=== PATIENT | female | born 1945 | race Caucasian/White ===

== ENCOUNTER → 2016-03-28 | Outpatient (CLI) | payer MEDICARE, OTHER ==
[2015-07-30 08:53] VITALS: BP 154/72
[~2016-03-28] MED LIST: BUDE10.2 IH; CALC-98 PO; FEXO180T81 PO; FEXO60TA25 PO; GLUC-126 PO; INDO50CA PO; LACT1CAP19 PO; MONT10TA6 PO; MULT-246 PO; OMEP20CA5 PO; PROAIR HFA8.5 GM IH
--- NOTE | 2016-03-28 11:43 | KCIC ---
PROCEDURE Bilateral digital screening mammogram. HISTORY 71-year-old female with a history of left breast cancer, status post left breast conservation therapy, presents for annual mammography. TECHNIQUE Full field digital craniocaudal and mediolateral oblique views of both breasts are obtained. Computer-aided detection is applied. COMPARISON 03/24/2015, 03/23/2014 FINDINGS Breast parenchymal composition: Level B - Scattered fibroglandular densities. There are stable findings consistent with breast conservation therapy. There is no new suspicious mass, calcification or architectural distortion within either breast. IMPRESSION BI-RADS Category 2: Benign findings. Annual mammography is recommended. Mammography is not 100% sensitive in detecting breast cancer. Therefore, a self breast exam and a clinical breast exam are very important. A negative mammogram does not negate a clinically suspicious finding and should not result in a delay in biopsying a clinically suspicious abnormality. This patient's information has been entered into a reminder system for the patient to be notified with the results of this examination and a target date for her next mammograms. Electronically signed by: Lashae Melendez (Mar 28, 2016 11:41:42)
== END | disposition home or self-care (01) ==
LOC: KCIC MAMMO 10:49
PROVIDERS: ATTEND Family Medicine
DX: Z12.31 Encounter for screening mammogram for malignant neoplasm of breast (principal); Z85.3 Personal history of malignant neoplasm of breast
CPT/HCPCS: G0202; 77067

== ENCOUNTER → 2017-03-29 | Outpatient (CLI) | payer MEDICARE, OTHER | END | disposition home or self-care (01) | LOC: KCIC MAMMO 12:42 | DX: Z12.31 Encounter for screening mammogram for malignant neoplasm of breast (principal); Z92.3 Personal history of irradiation; Z85.3 Personal history of malignant neoplasm of breast | CPT/HCPCS: 77063; 77067 ==

== ENCOUNTER → 2017-04-03 | Outpatient (CLI) | payer MEDICARE, OTHER | END | disposition home or self-care (01) | LOC: KCIC MAMMO 13:43 | DX: R92.1 Mammographic calcification found on diagnostic imaging of breast (principal); Z85.3 Personal history of malignant neoplasm of breast | CPT/HCPCS: 77065 ==

== ENCOUNTER → 2017-04-13 | Outpatient (CLI) | payer MEDICARE, OTHER ==
[2017-04-13] MEDS: LIDOCAINE WITH 8.4% SOD BICARB 3 ML DISP.SYRIN. INJ (13:15)
[2017-04-13] MEDS: LIDOCAINE 2%/EPI 1:100,000 20 ML VIAL. IJ (13:15)
== END | disposition home or self-care (01) ==
LOC: MAMMO 12:33
DX: R92.1 Mammographic calcification found on diagnostic imaging of breast (principal); Z85.3 Personal history of malignant neoplasm of breast
CPT/HCPCS: 77022; 77065; J3490

== ENCOUNTER 2017-10-16 15:40 | Inpatient (IN) | payer MEDICARE ==
[~2017-10-16] VITALS: Ht 170.2 cm; Wt 106.6 kg
[~2017-10-16 15:40] MED LIST changes: -INDO50CA PO; +INDO50CA5 PO
[2017-10-16 18:26] VITALS: BP 120/74
[2017-10-16 19:00] VITALS: BP 138/72
[2017-10-16] MEDS ORDERED: ALLO100T PO (19:18)
[2017-10-16] MEDS ORDERED: GLUC1TAB45 PO (19:18)
[2017-10-16] MEDS ORDERED: LACT1CAP6 PO (19:18)
[2017-10-16] MEDS ORDERED: LEVO150T5 PO (19:18)
[2017-10-16] MEDS ORDERED: TAMO20TA PO (19:18)
[2017-10-16] MEDS ORDERED: POTA99TA3 PO (19:18)
[2017-10-16] MEDS ORDERED: OMEP10CA3 PO (19:18)
[2017-10-16] MEDS ORDERED: MONT10TA9 PO (19:18)
[2017-10-16] MEDS ORDERED: PROAIR HFA8.5 GM INH (19:18)
[2017-10-16] MEDS ORDERED: BUDE10.22 IH (19:18)
[2017-10-16] MEDS ORDERED: CALC-77 PO (19:18)
[2017-10-16] MEDS ORDERED: ONDA4TAB7 PO (19:28)
[2017-10-16] MEDS ORDERED: NON FORMULARY ITEM (Albuterol Sulfate (Proair Hfa Inhaler) 1 PUFF) INH PRN (19:45)
[2017-10-16] MEDS ORDERED: ALBUTEROL SULFATE 2.5 MG/3 ML NEBU. NEB SCH (20:00)
[2017-10-16] MEDS ORDERED: ALBUTEROL SULFATE 2.5 MG/3 ML NEBU. NEB PRN (20:00)
[2017-10-16] MEDS ORDERED: BUDESONIDE 0.5 MG/2 ML NEBU. NEB SCH (20:00)
[2017-10-16] MEDS ORDERED: ONDANSETRON ODT 4 MG TAB.RAPDIS. PO PRN (20:15)
[2017-10-16 20:29] LABS: BASO # 0.1 x10^3/uL (0.0-0.2); BASO % 1 % (0-3); EOS # 0.2 x10^3/uL (0.0-0.7); EOS % 3 % (0-3); HEMATOCRIT 36.5 % (36.0-47.0); HEMOGLOBIN 12.4 g/dL (12.0-15.5); LYMPH # 1.8 x10^3/uL (1.0-4.8); LYMPH % 29 % (24-48); MEAN CORPUSCULAR HEMOGLOBIN 31 pg (25-35); MEAN CORPUSCULAR HGB CONC 34 g/dL (31-37); MEAN CORPUSCULAR VOLUME 92 fL (79-100); MONO # 0.6 x10^3/uL (0.0-1.1); MONO % 9 % (0-9); NEUT # 3.5 x10^3uL (1.8-7.7); NEUT % 58 % (31-73); PLATELET COUNT 190 x10^3/uL (140-400); RED BLOOD COUNT 3.96 x10^6/uL (3.50-5.40); WHITE BLOOD COUNT 6.1 x10^3/uL (4.0-11.0)
--- NOTE | 2017-10-16 20:41 | HP ---
ADMIT DATE: 10/16/2017 CHIEF COMPLAINT AND HISTORY OF PRESENT ILLNESS: This 72-year-old white female is well known to me from followup in the office. The patient has had a week or so of aching, malaise, anorexia, and just generally not feeling well. She went to [facility] on 10/13/2017, had lab done there showing a bilirubin increase to 3, her urine was darker. She had a report of CT scan of the abdomen showing no acute changes. She is known to have a cholecystectomy a couple of years ago and felt like the symptoms felt somewhat like she felt before she had that. PAST MEDICAL HISTORY: Remarkable for COPD, breast cancer, cataract surgery, melanoma, thyroid cancer in the past with total thyroidectomy. She has had the cholecystectomy, eye surgery, foot surgery. MEDICATIONS: Brought with the patient, listed on the computer and have been addressed. ALLERGIES: She has no known drug allergies. SOCIAL HISTORY: She has been a smoker, does drink, but not to excess. She is , lives alone. FAMILY HISTORY: Positive for CVA, Alzheimer disease, cancer of the colon and breast. REVIEW OF SYSTEMS: Just the generalized viral type illness with diarrhea, cramping abdominal pain, nausea, malaise, anorexia, and feels like, again as stated above, like this is similar to her prior episode of cholecystitis. PHYSICAL EXAMINATION: VITAL SIGNS: Stable. She is afebrile. HEAD, EYES, EARS, NOSE AND THROAT: Revealed very mild jaundice. NECK: Supple, no lymphadenopathy or thyromegaly. CHEST: Clear to auscultation and percussion with occasional wheeze. HEART: Regular rate and rhythm. ABDOMEN: Does have right upper quadrant tenderness without rebound or guarding, palpable hepatosplenomegaly or mass. EXTREMITIES: Without cyanosis, clubbing or edema. NEUROLOGIC: She is intact. LABORATORY DATA: Lab work in the office done 2 days after the Emergency Room visit showed the bilirubin climbing up to 4.7 where it had been 3.1, SGOT is elevated at 45, SGPT of 100 and her alkaline phosphatase is elevated at 171 with upper limits of normal of that lab of 129. CBC is unremarkable. Hepatitis A, B and C testing is all negative in the office on the . Urinalysis was positive bilirubin, positive leukocyte esterase, positive nitrites, in addition with 5-10 wbc's per high power field and 2+ bacteria suggestive of a possible UTI. She does have TSH that was checked in addition that is elevated at 7.3. IMPRESSION: 1. Jaundice with right upper quadrant pain, status post cholecystectomy with elevated alkaline phosphatase. 2. Possible urinary tract infection. 3. Multiple other problems listed above. PLAN: The patient has been admitted. Labs will be rechecked. GI has been consulted. An ultrasound of the abdomen will be obtained. If the repeat urine is the same, antibiotics will be instituted. We are waiting on an answer for this jaundice, which has been progressive over the last couple of days, 2-3 days at least prior to admission. BREANNA RUGGIERO MD DR: IHSAN/av JOB#: [id number] / [id number]
[2017-10-16 20:43] LABS: CALCIUM 8.6 mg/dL (8.5-10.1); CREATININE 1.7 mg/dL (0.6-1.0); GFR 29.6
[2017-10-16 20:48] LABS: ALBUMIN 2.9 g/dL (3.4-5.0); ALBUMIN/GLOBULIN RATIO 0.7 (1.0-1.7); TOTAL BILIRUBIN 1.6 mg/dL (0.2-1.0)
[2017-10-16] MEDS ORDERED: NON FORMULARY ITEM INH SCH (21:00)
[2017-10-16] MEDS: LACTOBACILLUS RHAMNOSUS GG 1 CAPSULE. PO SCH (21:14)
[2017-10-16] MEDS: BUDESONIDE INH SCH (21:16)
[2017-10-16] MEDS: MONTELUKAST SODIUM 10 MG TABLET. PO SCH (21:16)
[2017-10-16] MEDS: FORMOTEROL INH SCH (21:16)
[2017-10-16] MEDS: TAMOXIFEN 10 MG TABLET PO SCH (21:21)
--- NOTE | 2017-10-16 22:43 | RAD ---
Indication:ABNORMAL OUTSIDE LABS ELEVATED LIVER TECHNIQUE: Grayscale, color Doppler and spectral waveform is of the abdomen obtained. COMPARISON:None FINDINGS:Visualized pancreas is within normal limits. Pancreatic body and tail are visualized. IVC is patent. The proximal aortic diameter measures 2.3 cm and is within normal limits. The mid and distal aortic segments aren't visualized due to overlying bowel gas. Main portal vein is patent. The liver is mildly enlarged measuring 19 cm in craniocaudal dimension with diffusely increased echogenicity and decreased through transmission. No apparent focal liver lesion. Status post cholecystectomy. CBD measures 7 mm in diameter and is within normal limits. Right kidney is not well-visualized likely atrophic. The left kidney measures 13.7 cm in length without hydronephrosis. Spleen measures 11.3 cm in length and is normal in size. IMPRESSION: 1. Mild hepatomegaly with hepatic steatosis. 2. Right kidney is not well-visualized likely atrophic. Electronically signed by: Fausto Marin DO (10/16/2017 10:40 PM) [facility]
[2017-10-16 23:00] VITALS: BP 151/89
[2017-10-16 23:26] LABS: BILIRUBIN,URINE NEGATIVE (NEG); CLARITY,URINE CLEAR; NITRITE,URINE NEGATIVE (NEG); PH,URINE 6.5; PROTEIN,URINE NEGATIVE (NEG-TRACE); UROBILINOGEN,URINE 0.2 mg/dL (0.2 mg/dL)
[2017-10-16 23:31] LABS: COLOR,URINE STRAW
[2017-10-16 23:32] LABS: BACTERIA,URINE FEW /HPF (0-FEW); RBC,URINE 0 /HPF (0-2); SQUAMOUS EPITHELIAL CELL,UR MOD /LPF; WBC,URINE 0 /HPF (0-4)
[2017-10-17 03:00] VITALS: BP 138/66
[2017-10-17 07:00] VITALS: BP 121/54
[2017-10-17] MEDS ORDERED: LEVOTHYROXINE 150 MCG TABLET PO SCH (07:00)
[2017-10-17] MEDS: FORMOTEROL INH SCH ×2 (08:21→20:33)
[2017-10-17] MEDS: BUDESONIDE INH SCH ×2 (08:21→20:33)
[2017-10-17] MEDS: LACTOBACILLUS RHAMNOSUS GG 1 CAPSULE. PO SCH (08:22)
[2017-10-17] MEDS: POTASSIUM CHLORIDE 10 MEQ TABLET.ER. PO SCH (08:23)
[2017-10-17] MEDS: CALCIUM CARB/VIT D3 500/200 TABLET. PO SCH ×2 (08:23→17:16)
[2017-10-17] MEDS: PANTOPRAZOLE 40 MG TABLET.DR. PO SCH (08:23)
[2017-10-17] MEDS: ALLOPURINOL 100 MG TABLET. PO SCH (08:24)
[2017-10-17] MEDS ORDERED: TAMOXIFEN 10 MG TABLET PO SCH (09:00)
--- NOTE | 2017-10-17 10:05 | PDOC2 ---
GI CONSULT Reason For Consult: Jaundice, abnormal labs HPI: HPI: 72 y/o female who was not feeling well over the weekend w/ some fatigue, RUQ cramping, back and neck and chest aches, nausea, and decreased appetite. She noted dark urine and was seen at a [facility] ER on Sunday. She says she was told her bilirubin was 3 and that she was dehydrated. She then saw Dr. Perez in the office and says her bilirubin was 4 (on Sunday). Per Dr. Perez's note, CT at the ER was unremarkable. Labs here: bili 1.6, AST 49, ALT 116, Alk Phos 175. LFTs previously elevated into 2013. Also note CA19-9 of 535 at that time. Pain has resolved and her appetite is back to normal. She would like to go home. H/o GERD on omeprazole. No dysphagia, vomiting, diarrhea, hematochezia, melena , or weight loss. H/o constipation - last stool ~2 days ago. Has tried various treatments in the past (Mag Citrate usually works) but usually "just deals with it." No ASA, takes ibuprofen PRN. Denies pancreas or liver history. Colonoscopy 11/2014 (Dr. Ryder - for screening and h/o polyps): non-bleeding internal hemorrhoids, diverticulosis from sigmoid colon to hepatic flexure. EGD 11/2002 (Dr. Arevalo - for epigastric pain and dysphagia): mild antral gastritis (negative for H. pylori), empiric esophageal dilation to 54Fr. ERCP s/p sphincterotomy and stone extraction 05/2013 - reports indicates residual filling defects on last image (possibly air bubbles, residual calculi, or debris such as blood clot) S/p cholecystectomy 05/2013. H/o breast cancer x 2, currently on PO chemo. PMH: PMH: COPD, UTI, GERD, constipation, colon polyps, diverticulosis, melanoma, thyroid cancer s/p thyroidectomy, breast cancer x 2 s/p lumpectomies and chemo, eye surgery, foot surgery, cholecystectomy, ERCP w/ sphincterotomy FH: Family History: No pertinent hx Social History: Smoke: Quit ALCOHOL: occassional Drugs: None ROS: GEN: Denies fevers, chills, sweats HEENT: Denies blurred vision, sore throat CV: Denies chest pain RESP: Denies shortness of air, cough GI: Per HPI : Denies hematuria, dysuria ENDO: Denies weight changes NEURO: Denies confusion, dizziness MSK: Denies weakness, joint pain/swelling SKIN: Denies jaundice, pruritus Vitals: Vitals: Vital Signs Date Time Temp Pulse Resp B/P (MAP) Pulse Ox O2 Delivery O2 Flow Rate FiO2 10/17/17 07:45 Room Air 10/17/17 07:00 97.5 59 18 121/54 (76) 97 97.5 Labs: Labs: Laboratory Tests Test 10/16/17 20:20 10/16/17 21:20 White Blood Count 6.1 x10^3/uL (4.0-11.0) Red Blood Count 3.96 x10^6/uL (3.50-5.40) Hemoglobin 12.4 g/dL (12.0-15.5) Hematocrit 36.5 % (36.0-47.0) Mean Corpuscular Volume 92 fL (79-100) Mean Corpuscular Hemoglobin 31 pg (25-35) Mean Corpuscular Hemoglobin Concent 34 g/dL (31-37) Red Cell Distribution Width 14.0 % (11.5-14.5) Platelet Count 190 x10^3/uL (140-400) Neutrophils (%) (Auto) 58 % (31-73) Lymphocytes (%) (Auto) 29 % (24-48) Monocytes (%) (Auto) 9 % (0-9) Eosinophils (%) (Auto) 3 % (0-3) Basophils (%) (Auto) 1 % (0-3) Neutrophils # (Auto) 3.5 x10^3uL (1.8-7.7) Lymphocytes # (Auto) 1.8 x10^3/uL (1.0-4.8) Monocytes # (Auto) 0.6 x10^3/uL (0.0-1.1) Eosinophils # (Auto) 0.2 x10^3/uL (0.0-0.7) Basophils # (Auto) 0.1 x10^3/uL (0.0-0.2) Sodium Level 137 mmol/L (136-145) Potassium Level 4.0 mmol/L (3.5-5.1) Chloride Level 103 mmol/L (98-107) Carbon Dioxide Level 27 mmol/L (21-32) Anion Gap 7 (6-14) Blood Urea Nitrogen 16 mg/dL (7-20) Creatinine 1.7 mg/dL (0.6-1.0) Estimated GFR (Cockcroft-Gault) 29.6 BUN/Creatinine Ratio 9 (6-20) Glucose Level 155 mg/dL (70-99) Calcium Level 8.6 mg/dL (8.5-10.1) Total Bilirubin 1.6 mg/dL (0.2-1.0) Aspartate Amino Transf (AST/SGOT) 49 U/L (15-37) Alanine Aminotransferase (ALT/SGPT) 116 U/L (14-59) Alkaline Phosphatase 175 U/L (46-116) Total Protein 7.0 g/dL (6.4-8.2) Albumin 2.9 g/dL (3.4-5.0) Albumin/Globulin Ratio 0.7 (1.0-1.7) Urine Collection Type Unknown Urine Color Straw Urine Clarity Clear Urine pH 6.5 Urine Specific Ector <=1.005 Urine Protein Negative mg/dL (NEG-TRACE) Urine Glucose (UA) Negative mg/dL (NEG) Urine Ketones (Stick) Negative mg/dL (NEG) Urine Blood Negative (NEG) Urine Nitrite Negative (NEG) Urine Bilirubin Negative (NEG) Urine Urobilinogen Dipstick 0.2 mg/dL (0.2 mg/dL) Urine Leukocyte Esterase Negative (NEG) Urine RBC 0 /HPF (0-2) Urine WBC 0 /HPF (0-4) Urine Squamous Epithelial Cells Mod /LPF Urine Bacteria Few /HPF (0-FEW) Allergies: Coded Allergies: No Known Drug Allergies (Unverified , 06/05/13) Medications: Current Medications Medications (Trade) Dose Ordered Sig/Kaylen Route PRN Reason Start Time Stop Time Status Last Admin Dose Admin Allopurinol (Zyloprim) 100 mg DAILY PO 10/17/17 09:00 10/17/17 08:24 Calcium/Vitamin D (Oscal D 500mg/ 200uts) 1 tab BIDWMEALS PO 10/17/17 08:00 10/17/17 08:23 Lactobacillus Rhamnosus (Culturelle) 1 cap DAILY PO 10/16/17 21:00 9/12/18 08:22 Montelukast Sodium (Singulair) 10 mg QHS PO 10/16/17 21:00 10/16/17 21:16 Pantoprazole Sodium (Protonix) 40 mg DAILYAC PO 10/17/17 07:30 10/17/17 08:23 Ondansetron HCl (Zofran Odt) 4 mg PRN Q6HRS PRN PO NAUSEA/VOMITING 10/16/17 20:15 10/16/17 21:16 Potassium Chloride (Klor-Con) 10 meq DAILYWBKFT PO 10/17/17 08:00 10/17/17 08:23 Tamoxifen Citrate (Nolvadex) 10 mg HS PO 10/16/17 21:00 10/16/17 21:21 Non-Formulary Medication 1 ea BID INH 10/16/17 21:00 10/17/17 08:21 Imaging: Imaging: Abd US IMPRESSION: 1. Mild hepatomegaly with hepatic steatosis. 2. Right kidney is not well-visualized likely atrophic. PE: GEN: NAD HEENT: Atraumatic, PERRL LUNGS: CTAB HEART: RRR ABD: NABS, S/ND/NT EXTREMITY: No edema SKIN: No rashes, no jaundice NEURO/PSYCH: A & O 3 A/P: A/P: RUQ pain, nausea Elevated LFTs - improved GERD - controlled on PPI CRC screen, h/o polyps - UTD H/o constipation S/p cholecystectomy and ERCP w/ sphincterotomy Breast cancer -- Reviewed w/ Dr. Ryder - symptoms and labs improved, will check MRCP prior to release. SOREN LUNSFORD Oct 17, 2017 10:05
[2017-10-17 11:00] VITALS: BP 125/51
[2017-10-17 15:00] VITALS: BP 135/51
[2017-10-17 19:00] VITALS: BP 118/65
[2017-10-17] MEDS: MONTELUKAST SODIUM 10 MG TABLET. PO SCH (20:34)
[2017-10-17] MEDS: TAMOXIFEN 10 MG TABLET PO SCH (20:36)
[2017-10-17 23:00] VITALS: BP 134/77
--- NOTE | 2017-10-17 23:02 | PN ---
DATE: 10/17/2017 LOCATION: She is in room 526. SUBJECTIVE: The patient is awake and alert, getting ready to eat breakfast, feels much better, starting abruptly yesterday evening around the time of admission. She no longer has the crampy right upper quadrant abdominal pain and nausea and actually has a little bit of an appetite this morning. OBJECTIVE: VITAL SIGNS: Stable. She is afebrile. GENERAL: She is awake and alert. CHEST: Clear. HEART: Regular. ABDOMEN: Benign. EXTREMITIES: Without cyanosis, clubbing or edema. She has no icterus present on exam today. She states her urine is back to yellow instead of the brown that has been for the last several days. LABORATORY TESTING: Has improved dramatically from Sunday in the office with a bilirubin dropping down to 1.6 from 4.1. Her creatinine is elevated at 1.7. Transaminases are still elevated with an AST of 49, ALT of 116 and her alkaline phosphatase is still elevated at 175. Urine no longer shows bilirubinuria and her CBC is unremarkable. ASSESSMENT: 1. Marked improvement in abrupt nature, suggesting that she passed a retained stone, which was present from her prior cholecystectomy. 2. Gastroesophageal reflux disease. 3. History of breast cancer. PLAN: We will at this point await GI consultation. Once they feel workup has been completely, could be discharged. Ultrasound has been done since admission and shows some hepatic steatosis, but no evidence of obstructive disease and the visualized pancreas at least appears to be normal. BREANNA RUGGIERO MD DR: IHSAN/av JOB#: [id number] / [id number]
[2017-10-18 03:00] VITALS: BP 127/59
[2017-10-18 05:55] LABS: ALBUMIN 2.5 g/dL (3.4-5.0); ALBUMIN/GLOBULIN RATIO 0.6 (1.0-1.7); CALCIUM 8.6 mg/dL (8.5-10.1); CREATININE 1.2 mg/dL (0.6-1.0); GFR 44.3; POTASSIUM 4.6 mmol/L (3.5-5.1); TOTAL BILIRUBIN 1.1 mg/dL (0.2-1.0); TOTAL PROTEIN 6.5 g/dL (6.4-8.2)
[2017-10-18 07:00] VITALS: BP 130/70
[2017-10-18] MEDS ORDERED: LEVOTHYROXINE 150 MCG TABLET PO SCH (07:00)
[2017-10-18] MEDS: CALCIUM CARB/VIT D3 500/200 TABLET. PO SCH (09:35)
[2017-10-18] MEDS: POTASSIUM CHLORIDE 10 MEQ TABLET.ER. PO SCH (09:35)
[2017-10-18] MEDS: PANTOPRAZOLE 40 MG TABLET.DR. PO SCH (09:36)
[2017-10-18] MEDS: ALLOPURINOL 100 MG TABLET. PO SCH (09:36)
[2017-10-18] MEDS: LACTOBACILLUS RHAMNOSUS GG 1 CAPSULE. PO SCH (09:36)
[2017-10-18] MEDS: BUDESONIDE INH SCH (09:36)
[2017-10-18] MEDS: FORMOTEROL INH SCH (09:36)
--- NOTE | 2017-10-18 10:11 | RAD ---
MRCP WO CONTRAST: 10/18/2017 9:15 AM INDICATION: 72 years old Female. Choledocholithiasis with history of cholecystectomy. COMPARISON: Ultrasound abdomen October 16, 2017. TECHNIQUE: Multiplanar multisequence MR imaging of the abdomen was performed both without the intravenous administration of gadolinium. MRCP protocol was utilized. Maximum intensity projection images of the biliary tree are provided. FINDINGS: LUNG BASES: Unremarkable. ABDOMEN: LIVER: Normal morphology. No significant difference of hepatic signal intensity between in and out of phase images. There is no focal hepatic parenchymal abnormality. BILE DUCTS: CBD 6 mm. There is no intra or extrahepatic biliary ductal dilatation. There is no filling defect, stricture, obstructing lesion or biliary wall thickening identified. GALLBLADDER: Absent. PANCREAS: Unremarkable. Normal caliber pancreatic duct. SPLEEN: Within normal limits. ADRENAL GLANDS: There is a 1.4 cm lipid rich left adrenal adenoma utilizing signal characteristics on in and out of phase imaging. Right adrenal gland is normal. KIDNEYS: Asymmetric atrophy of the right kidney with renal cortical cysts measuring up to 1.8 cm. No suspicious renal mass is identified. No hydronephrosis. BOWEL: Normal caliber. PERITONEUM: No ascites or free air. No fluid collection. VASCULATURE: No abdominal aortic aneurysm. Major abdominal veins are patent. RETROPERITONEUM: Within normal limits. LYMPH NODES: Within normal limits. ABDOMINAL WALL: Unremarkable. BONES: No suspicious osseous abnormality. Reverse S-shaped scoliosis of the thoracolumbar spine is noted. IMPRESSION: Status post cholecystectomy without evidence of biliary dilatation, stricture, filling defect, wall thickening or obstructing mass lesion. Atrophy of the right kidney with renal parenchymal cysts measuring up to 1.8 cm. No suspicious renal mass or hydronephrosis. 1.4 cm suspected lipid rich adrenal adenoma utilizing MRI characteristics. Electronically signed by: Yamilka Roberson MD (10/18/2017 10:07 AM) [id number]
--- NOTE | 2017-10-18 11:30 | PDOC ---
Subjective: Subjective: I saw her before discharge. Really wants to go home, denies pain. Objective: Vital Signs: Vital Signs Date Time Temp Pulse Resp B/P (MAP) Pulse Ox O2 Delivery O2 Flow Rate FiO2 10/18/17 07:55 Room Air 10/18/17 07:00 97.7 58 18 130/70 (90) 100 97.7 Labs: Laboratory Tests Test 10/18/17 04:45 Sodium Level 142 mmol/L Potassium Level 4.6 mmol/L Chloride Level 106 mmol/L Carbon Dioxide Level 28 mmol/L Anion Gap 8 Blood Urea Nitrogen 13 mg/dL Creatinine 1.2 mg/dL Estimated GFR (Cockcroft-Gault) 44.3 BUN/Creatinine Ratio 11 Glucose Level 105 mg/dL Calcium Level 8.6 mg/dL Total Bilirubin 1.1 mg/dL Aspartate Amino Transf (AST/SGOT) 50 U/L Alanine Aminotransferase (ALT/SGPT) 110 U/L Alkaline Phosphatase 136 U/L Total Protein 6.5 g/dL Albumin 2.5 g/dL Albumin/Globulin Ratio 0.6 Imaging: MRCP IMPRESSION: Status post cholecystectomy without evidence of biliary dilatation, stricture, filling defect, wall thickening or obstructing mass lesion. Atrophy of the right kidney with renal parenchymal cysts measuring up to 1.8 cm. No suspicious renal mass or hydronephrosis. 1.4 cm suspected lipid rich adrenal adenoma utilizing MRI characteristics. PE: GEN: NAD - dressed to leave LUNGS: CTAB HEART: RRR ABD: NABS, S/ND/NT NEURO/PSYCH: A & O 3 A/P: RUQ pain, nausea - resolved Elevated LFTs - improving S/p cholecystectomy and ERCP w/ sphincterotomy - MRCP unrevealing for retained stone -- DC per primary. SOREN LUNSFORD Oct 18, 2017 11:30
--- NOTE | 2017-10-18 12:59 | PN ---
DATE: 10/18/2017 LOCATION: She is in room 526. SUBJECTIVE: The patient is awake, alert, feeling back to her baseline. OBJECTIVE: VITAL SIGNS: Stable. She is afebrile. CHEST: Clear. HEART: Regular. ABDOMEN: Benign. HEENT: No icterus. LABORATORY DATA: Creatinine is decreased to 1.2. Liver function tests are decreasing daily. Bilirubin is down to 1.1. Urine has cleared. IMPRESSION: 1. Abdominal pain with jaundice, likely due to passage of biliary stone on admission, which has improved. 2. Multiple other problems as outlined in the history and physical. PLAN: We will await MRCP today with likely discharge after I have discussed with nursing and they will call me for the same. BREANNA RUGGIERO MD DR: IHSAN/av JOB#: [id number] / [id number]
[2017-10-19] MEDS ORDERED: LEVOTHYROXINE 150 MCG TABLET PO SCH (07:00)
== END 2017-10-18 11:26 | disposition home or self-care (01) | DRG 444 ==
LOC: 5 NORTH 17:08
PROVIDERS: ADMIT Family Medicine; ATTEND Family Medicine
DX: K80.50 Calculus of bile duct without cholangitis or cholecystitis without obstruction (principal); N17.0 Acute kidney failure with tubular necrosis; R17 Unspecified jaundice; J44.9 Chronic obstructive pulmonary disease, unspecified; E89.0 Postprocedural hypothyroidism; F17.200 Nicotine dependence, unspecified, uncomplicated; K21.9 Gastro-esophageal reflux disease without esophagitis; N26.1 Atrophy of kidney (terminal); K57.30 Diverticulosis of large intestine without perforation or abscess without bleeding; Z85.850 Personal history of malignant neoplasm of thyroid; Z85.820 Personal history of malignant melanoma of skin; Z85.3 Personal history of malignant neoplasm of breast; Z90.49 Acquired absence of other specified parts of digestive tract; Z82.3 Family history of stroke; Z82.0 Family history of epilepsy and other diseases of the nervous system; Z80.0 Family history of malignant neoplasm of digestive organs
CPT/HCPCS: 36415; 74181; 76700; 80053; 81001; 85025; Q0162

== ENCOUNTER 2021-01-10 08:57 | Day surgery (SDC) | payer MEDICARE ==
[~2021-01-10] VITALS: Ht 170.2 cm; Wt 104.0 kg
[~2021-01-10 08:57] MED LIST changes: +ALBU2.5V8 IH; +ALBU2.5V8 INH; +ALLO100T PO; +BUDE10.22 IH; +CALC-77 PO; +GLUC1TAB45 PO; +HYDROmorphone 2 MG/ML VIAL IVP PRN; +INDO50CA15 PO; -INDO50CA5 PO; +IV RINGERS,LACTATED 1000ML 1,000 ML IV SCH; +LACT1CAP6 PO; +LEVO150T5 PO; +MONT10TA49 PO; -MONT10TA6 PO; +MORPHINE SULFATE 2 MG/ML INJ. IVP PRN; +OMEP10CA4 PO; +ONDA4TAB7 PO; +POTA99TA3 PO; -PROAIR HFA8.5 GM IH; +PROCHLORPERAZINE 10 MG/2 ML VIAL. IVP PRN; +TAMO20TA PO; +fentaNYL PF VIAL 100 MCG/2 ML VIAL IVP PRN
[2021-01-10] MEDS ORDERED: RIVA20TA2 PO (09:19)
[2021-01-10 09:20] VITALS: BP 197/104
[2021-01-10] MEDS ORDERED: BUPIVACAINE-EPI 0.25%-1:200000 MPF 30 ML VIAL. ONE (09:58)
[2021-01-10] MEDS ORDERED: HYDR-2761 PO (10:22)
[2021-01-10] MEDS ORDERED: PROPOFOL 10 MG/ML (20ML) VIAL. IV ONE ×2 (10:30→10:31)
[2021-01-10] MEDS ORDERED: LIDOCAINE 1% PF 5 ML VIAL. ONE (10:31)
[2021-01-10] MEDS ORDERED: ONDANSETRON PF 4 MG/2 ML VIAL. ONE (10:31)
[2021-01-10] MEDS ORDERED: fentaNYL PF VIAL 100 MCG/2 ML VIAL ONE ×2 (10:33→11:21)
[2021-01-10] MEDS ORDERED: GLYCOPYRROLATE 1 MG/5 ML VIAL. ONE (10:34)
--- NOTE | 2021-01-10 10:51 | DISCH ---
DISCHARGE INSTRUCTIONS Condition on Discharge Condition on Discharge: Stable Activity After Discharge Activity Instructions for Disc: Resume previous activity, Activity as celeste ated, Avoid exertion Driving Instructions after Dis: Do not drive today Weight Bearing Status after Di: As tolerated Diet after Discharge Diet after Discharge: Regular Wound Incision Care Wound/Incision Care: Ice to area for comfort, Keep wound elevated, Change dressing, No wound care needed Other wound/incision instructi: Change dressings postoperative day #3 Follow-Up Follow up with: 10 to 14 days IRENA RODRIGUEZ Jr. DO Jan 10, 2021 10:51
--- NOTE | 2021-01-10 10:56 | PDOC4 ---
OPERATIVE NOTE Date: Date: Jan 10, 2021 Pre-Op Diagnosis: Medial and lateral meniscal tears with degenerative joint disease left knee Post-Op Diagnosis: Same Procedure Performed: Left knee arthroscopy with partial medial and lateral meniscectomy joint debridement synovectomy Surgeon: Jaime Anesthesia Type: General Blood Loss: 20 cc Specimans Obtained: None Findings: See dictation Complications: None IRENA RODRIGUEZ Jr., DO Jan 10, 2021 10:56
[2021-01-10] MEDS ORDERED: HYDROcodone/APAP 5/325MG 1 TAB TABLET PO ONE (11:15)
[2021-01-10] MEDS ORDERED: PROCHLORPERAZINE 10 MG/2 ML VIAL. ONE (11:21)
--- NOTE | 2021-01-10 11:26 | PREOP HP ---
DATE OF SERVICE: 01/10/2021 REASON FOR CONSULTATION: The patient is a 75-year-old female here today with complaints left knee pain with an MRI positive for meniscal tears as well as degeneration. BRIEF HISTORY: The patient is a 75-year-old female who was dancing about 2 months ago. At which time she had a twisting type of injury and since then has had significant pain in the left knee, which is unremitting. She underwent an MRI examination, which did show meniscal tears and she continues with swelling, pain and difficulty with activities of daily living secondary to this pain. No other significant abnormalities or complaints, no locking or instability episodes. PAST MEDICAL HISTORY: Remarkable for asthma, breast cancer, gout, atrial fibrillation, and hypothyroidism. PAST SURGICAL HISTORY: Thyroidectomy, lumpectomy on the breast, foot surgery x2, cholecystectomy, eye surgery x2. FAMILY HISTORY: Unremarkable on her mother's side. Father's side colon cancer and breast cancer is noted from grandmother. SOCIAL HISTORY: The patient has not used tobacco for the last 5-10 years. Minimal use of alcohol. MEDICATIONS: Numerous and are listed on the original H and P on 11/08/2020, those were reviewed, also reviewed today and noted to be unchanged. MEDICATION ALLERGIES: No known drug allergies. PHYSICAL EXAMINATION: She is 69 inches tall, 230 pounds. She has effusion in the knee, which is [id number] today. Pain with palpation of both medial and lateral joint lines, more medial than lateral, but positive Apley's test is noted to the medial and lateral compartments. No varus or valgus or AP instability with testing of the knee. There was proper tracking in patellofemoral joint. There is some crepitus of the patellofemoral joint with range of motion 0 up to 120 degrees of flexion, pain anteriorly and medially throughout the arc of motion. No atrophy of musculature to the left versus the right lower extremity and the distal neurovascular status is fully intact. IMPRESSION: Medial meniscal tear with degenerative joint disease, left knee. PLAN: At this time, I have talked with her at length and her daughter today about all the treatment options. They wished to go ahead and proceed with a left knee arthroscopy, partial medial and lateral meniscectomy. They understand the risks, complications as well as benefits and expectations of that surgery, postoperative protocol and followup. We will get her off to surgery here very shortly. EDILMA DR: Stefania TID: [id number]
[2021-01-10] MEDS: fentaNYL PF VIAL 100 MCG/2 ML VIAL IVP PRN ×2 (11:27→11:44)
--- NOTE | 2021-01-10 11:49 | OP ---
DATE OF SURGERY: 01/10/2021 PREOPERATIVE DIAGNOSIS: Medial and lateral meniscal tears with degenerative joint disease, left knee. POSTOPERATIVE DIAGNOSIS: Medial and lateral meniscal tears with degenerative joint disease, left knee. PROCEDURE: Left knee arthroscopy with partial medial meniscectomy, partial lateral meniscectomy, synovectomy and joint debridement. SURGEON: Akhil Sandoval Jr, DO BRINE TANK TENDER: Edgard John. ANESTHESIA: General. COMPLICATIONS: None. ESTIMATED BLOOD LOSS: 20 mL. DESCRIPTION OF PROCEDURE: The patient was taken to the operative suite, given a general anesthetic. Left lower extremity was placed in a knee carpenter, prepped and draped in a sterile fashion. Inferomedial and inferolateral portals were established. Knee was insufflated with saline. Visualization of the patellofemoral joint actually noted this to be completely intact and stable. There were no lesions or abnormalities noted. Scope was then taken into the medial and lateral gutters. No loose bodies were noted. In the medial compartment, there was deep grade 3 changes, no grade 4 changes and the tibial side of the joint actually looked very good. The unstable fragments noted on the medial side were debrided back to stable tissue and again deep grade 3 only. There was a very complex tear of the posterior horn of the medial meniscus. This was noted to be very unstable with probing. Therefore, using basket forceps and a shaver, a partial medial meniscectomy was undertaken. This was debrided back to stable tissue and the outer one-third was noted to be completely intact along the posterior horn. The ACL and the PCL were also probed and not only visually intact, but was stable with probing. A significant amount of synovitis was noted anteriorly. This was removed in its entirety. There was a degenerative tear upon entering the lateral compartment of the middle to anterior portion of the lateral meniscus. This degenerative tear was debrided back to stable tissue with the inner one quarter to one third being debrided. The remnant was noted to be very stable. The femoral and tibial sides of the joint had excellent chondral cartilage. No other abnormalities were noted. This was reinspected. No new problems were noted. Therefore, this was thoroughly irrigated and suctioned dry. All instruments were then removed. The wounds were reapproximated. Local was placed. Sterile dressing was applied. The patient was then taken from the operative bed to the postoperative bed, taken to the PACU in stable condition. VINCENT DR: Stefania TID: [id number]
[2021-01-10 12:18] VITALS: BP 150/66
== END 2021-01-10 13:00 | disposition home or self-care (01) ==
LOC: SURG 08:57
PROVIDERS: ATTEND Orthopaedic Surgery
DX: S83.242A Other tear of medial meniscus, current injury, left knee, initial encounter (principal); S83.282A Other tear of lateral meniscus, current injury, left knee, initial encounter; M17.12 Unilateral primary osteoarthritis, left knee; J45.909 Unspecified asthma, uncomplicated; I48.91 Unspecified atrial fibrillation; E03.9 Hypothyroidism, unspecified; M10.9 Gout, unspecified; E66.9 Obesity, unspecified; K21.9 Gastro-esophageal reflux disease without esophagitis; Z85.828 Personal history of other malignant neoplasm of skin; Z85.3 Personal history of malignant neoplasm of breast; Z87.891 Personal history of nicotine dependence; Z79.899 Other long term (current) drug therapy; Z98.890 Other specified postprocedural states; Z90.49 Acquired absence of other specified parts of digestive tract; Z80.3 Family history of malignant neoplasm of breast; Z80.0 Family history of malignant neoplasm of digestive organs
CPT/HCPCS: 29880; A4930; J0690; J0780; J2405; J2704; J3010; J3490